=== PATIENT | female | born 1980 | race Caucasian/White ===

== ENCOUNTER → 2016-04-03 | Outpatient (CLI) | payer BC | LOC: M WUC 12:39 | PROVIDERS: ATTEND Physician Assistant | DX: J02.9 Acute pharyngitis, unspecified (principal) ==

== ENCOUNTER → 2017-08-09 | Outpatient (REF) ==
[2017-08-10 10:59] LABS: HEPATITIS B SURFACE ANTIBODY POSITIVE (POSITIVE)
== END ==
LOC: M LAB 08:02
DX: Z02.9 Encounter for administrative examinations, unspecified (principal)

== ENCOUNTER → 2017-08-09 | Outpatient (CLI) | payer BC ==
[2017-08-09 09:20] LABS: CHOLESTEROL LEVEL 146 MG/DL (<200); CHOLESTEROL RISK RATIO 2.979 (<5); HDL CHOLESTEROL 49 MG/DL (>40); LDL CHOLESTEROL 84.4 MG/DL (<100); NON-HDL-C 97 MG/DL; TRIGLYCERIDES LEVEL 63 MG/DL (<150)
== END ==
LOC: M LAB 07:55
DX: E66.9 Obesity, unspecified (principal)
CPT/HCPCS: 84443

== ENCOUNTER → 2023-02-08 | Outpatient (CLI) | payer BC ==
[2023-02-08 16:28] LABS: URINE PREG TEST NEGATIVE (NEGATIVE)
== END ==
LOC: M WUC 12:22
PROVIDERS: ATTEND Physician Assistant
DX: N94.6 Dysmenorrhea, unspecified (principal); D68.9 Coagulation defect, unspecified